=== PATIENT | male | born 1940 | race Caucasian/White ===

== ENCOUNTER 2022-07-06 16:50 | Inpatient (IN) | payer OTHER ==
--- OUTSIDE RECORDS SUMMARY | 2022-07-06 16:54 | XMS REPORT | Continuity of Care Document ---
:1940 Author Organization [facility] t Address [address] [place] [address] Care Team Providers Name Role Phone Sharpless Primary Care Physician Problems Condition Condition Condition Status Onset Resolution Last Treating Co mments Source Name Details Category Date Date Treatment Clinician Date Status Status Disease Active Methodi post total post total 5-17 st knee knee 00:00: Hospita replacemen replacemen 00 l t using t using cement, cement, left left Status Status Disease Active Methodi post total post total 2-13 st bilateral bilateral 00:00: Hosp anand knee knee 00 l replacemen replacemen t t Left knee Left knee Disease Active [facility] pain pain 2-13 st 00:00: Hospita 00 l Acute pain Acute pain Disease Active 2016-08 M [facility]i of left of left 0-05 st knee knee 00:00: Hospita 00 l Osteoarthr Osteoarthr Disease Active 2016-08 M ethodi itis of itis of 0-05 st left knee left knee 00:00: Hosp anand 00 l Status Status Disease Active 2016-08 [facility] post knee post knee 0-05 st replacemen replacemen 00:00: Ho spita t t 00 l Chewing Chewing Disease Active 2015-[address] [facility] tobacco tobacco 1-05 [facility] nicotine nicotine 00:00: Medica l dependence dependence 00 Ce nter Atheroscle Atheroscle Disease Active 2015-[address] rosis of rosis of 0[facility]31 [facility] coronary coronary 00:00: Medica l artery of artery of 00 [facility] [place] heart with heart 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/P CABG x Disease Active 2015-[address] 3 3 0-[facility] Acute Acute Disease Active 2015-[address] [facility] pulmonary pulmonary 0-31 [facility] insufficie insufficie 00:00: Me dical ncy ncy 00 Center following following thoracic thoracic surgery surgery Atelectasi Atelectasi Disease Active 2015-[address] s s 0-31 [facility] Hyperglyce Hyperglyce Disease Active 2015-[address] jhony due to jhony due to 0-31 Teresa kes 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 00 Center mellitus mellitus Chronic Chronic Disease Active 2015-[address] [facility] [address] kidney kidney 0-31 [facility] disease, disease, 00:00: Medica l stage III stage III 00 Cent er (moderate) (moderate) H/O: H/O: Disease Active 2015-[address] [facility] hypertensi hypertensi 0-31 Teresa kes on on 00:00: Medical 00 Center Mixed Mixed Disease Active 2015-[address] [facility] hyperlipid hyperlipid 0-31 Teresa kes emia emia 00:00: Medical 00 Center S/P AVR S/P AVR Disease Active 2015-[address] [facility] [address] 0-31 [facility] 00[facility] Center Nonrheumat Nonrheumat Disease Active 2015-[address] ic aortic ic aortic 0-31 [facility] valve valve 00:00: Medical stenosis stenosis 00 Center Acute Acute Disease Active 2015-[address] [facility] [address] blood loss blood loss 0-31 Teresa kes as cause as cause 00:00: Medica l of of 00 Center postoperat postoperat dg anemia dg anemia Coagulopat Coagulopat Disease Active 2015-[address] hy hy 0-31 [facility] 00:[facility]: [facility] 00 Center Allergies, Adverse Reactions, Alerts This patient has no known allergies or adverse reactions. Social History Social Habit Start Date Stop Date Quantity Comments Source History SDOH [facility] Alcohol Frequency Medical Center History SDOH [facility] Alcohol Std Medical Cente r Drinks History SDOH [facility] Alcohol Binge Medical Radha ter History of Snuff User [facility] tobacco use Hospital Alcohol intake 2018-07-28 2018-07-28 Current [facility] 00:00:00 00:00:00 non-drinker of Hospital alcohol (finding) Tobacco use and 2017-05-20 2017-05-20 User of smokeless Me [facility]odist exposure 00:00:00 00:00:00 tobacco Hospital History [facility] 2016-06-15 2016-06-[address] [facility] Alcohol Comment 00:00:00 00:00:00 Medical C enter Sex [birth year] At [birth year] [facility] 00:0000 00:00:00 Hospital Smoking Status Start Date Stop Date Source Never smoked tobacco [facility] Medications Ordered Filled Start Stop Current Ordering Indication Dosage Frequency Signature Comments Components Source Medication Medication Date Date Medication? Clinician (SIG) Name Name bisacodyl 2016-08 Yes 5mg Q24H Take 5 mg Met [facility] (DULCOLAX) 0-[address] 5 mg EC 12:45: daily as Hospit a tablet 44 needed for l constipati on. glipiZIDE 2016-08 Yes 5mg Q.5D Take 5 mg Met [facility]odi (GLUCOTROL) 0-[address] 10 MG 12:45: (two) Hospita tablet 44 times a l day before meals. hydroCHLORO 2016-08 Yes 25mg QD Take 25 mg Methodi thiazide 0-[address] (HYDRODIURI 12:45: daily. Hosp anand L) 25 MG 44 l tablet lisinopril 2016-08 Yes 40mg QD Take 40 mg M ethodi (PRINIVIL,Z 0-[address] ESTRIL) 40 12:45: daily. Hospi ta mg tablet 44 l aspirin 2016-08 Yes 81mg QD Take 81 mg Meth demian (ECOTRIN) 0-[address] 81 MG 12:45: daily. Hospita enteric 44 l coated tablet metFORMIN Yes [facility]i XR 9-25 st (GLUCOPHAGE 00:00: Hospit a -XR) 500 mg 00 l 24 hr tablet metoprolol Yes 12.5mg Q.5D 12.5 mg 2 [facility] tartrate 9-25 (two) st (LOPRESSOR) 00:00: times a Hos braden 25 mg 00 day. l tablet amLODIPine Yes Methodi (NORVASC) 9- st 10 mg 00:00: Hospita tablet 00 l atorvastati 2017-0 Yes Method i n (LIPITOR) 9-21 st 10 MG 00:00: Hospita tablet 00 l glipiZIDE 2015-08 Yes 5mg Take [address] (GLUCOTROL) 1-07 by mouth 2 Teresa kes 5 MG tablet 15:20: (two) Medic al 26 times Center daily before meals. hydrochloro 2015-08 Yes 25mg QD Take [address] thiazide 1-07 by mouth [facility] (HYDRODIURI 15:20: daily. Medi gabriella L) 25 MG 26 Center tablet lisinopril 2015-08 Yes 40mg QD Take [address] (PRINIVIL,Z 1-07 by mouth Luke s ESTRIL) 40 15:20: daily. Medic al MG tablet 26 Center metFORMIN 2015-08 Yes 500mg Take [address] (GLUCOPHAGE 1-07 mg by [facility] ) 500 MG 15:20: mouth 2 Medica l tablet 26 (two) Center times daily with breakfast and dinner. metoprolol 2015-08 Yes 12.5mg Q.5D Take 12.[address] (LOPRESSOR) 1-07 mg by [facility] 25 MG 15:20: mouth 2 Medical tablet 26 (two) Center times daily. simvastatin 2015-08 Yes 40mg QD Take [address] (ZOCOR) 40 1-07 by mouth [facility] MG tablet 15:20: nightly. Medi gabriella 26 Center aspirin 81 2015-08 Yes 81mg QD Take [address] MG EC 1-07 by mouth [facility] tablet 15:20: daily. Medical 26 Center Procedures This patient has no known procedures. Plan of Care Planned Activity Planned Date Details Comments Source Future Scheduled 2022-06-17 HEPATITIS B VACCINES [facility] Test 20:30:35 (1 of 3 - 3-dose series) [code = HEPATITIS B VACCINES (1 of 3 - 3-dose series)] Future Scheduled 2022-06-17 COVID-19 VACCINE (#1) [facility] Test 20:30:35 [code = COVID-19 VACCINE (#1)] Future Scheduled 2022-06-17 SHINGLES VACCINES (1 [facility] Test 20:30:35 of 2) [code = SHINGLES VACCINES (1 of 2)] Future Scheduled 2022-06-17 65+ [facility]OCOCCAL [facility] Test 20:30:35 VACCINE (1 - PCV) [code = 65+ PNEUMOCOCCAL VACCINE (1 - PCV)] Future Scheduled 2022-06-17 INFLUENZA VACCINE [facility] Test 20:30:35 [code = INFLUENZA VACCINE] Results This patient has no known results.
[2022-07-06 17:14] VITALS: BMI 27.8
[2022-07-06] MEDS ORDERED: GLUCAGON 1 MG/VIAL IM PRN (17:42)
[2022-07-06] MEDS ORDERED: D10W 250 ML BAG IV PRN (17:46)
[2022-07-06] MEDS ORDERED: NACHLORIDE 0.45% 1,000 ML IV SCH (18:00)
[2022-07-06] MEDS: INSULIN -REGULAR HUMAN 50 UNIT/0.5 ML ML SQ SCH (18:33)
[2022-07-06 18:44] LABS: Absolute Lymphocytes (CBC) 0.6 K/uL (0.7-4.9); Hematocrit 44.2 % (39.6-49.0); Lymphocytes % 3.3 % (15.3-44.8); MCV 79.6 fL (80-100); MPV 7.9 fL (7.6-11.3); RBC Red Blood Cell Count 5.55 M/uL (4.33-5.43)
[2022-07-06 18:45] LABS: Protime INR 1.49
[2022-07-06] MEDS ORDERED: ONDANSETRON 4 MG (ODT) TAB PO PRN (19:00)
[2022-07-06] MEDS ORDERED: LOPERAMIDE HCL 2 MG CAPSULE PO PRN (19:00)
[2022-07-06] MEDS ORDERED: ONDANSETRON 4 MG/2 ML VIAL IV PRN (19:00)
[2022-07-06] MEDS ORDERED: DIPHENHYDRAMINE 25 MG TAB/CAP PO PRN (19:00)
[2022-07-06] MEDS ORDERED: POLYETHYL GLY 3350 17 GM/DOSE PO PRN (19:00)
[2022-07-06] MEDS ORDERED: ACETAMINOPHEN 325 MG TABLET PO PRN (19:00)
[2022-07-06] MEDS ORDERED: TYLENOL 500 MG PO PRN (19:07)
[2022-07-06 19:26] LABS: Albumin 2.8 g/dL (3.4-5.0); Bilirubin Direct 1.1 mg/dL (0-0.2); Bilirubin Total 2.4 mg/dL (0.2-1.0); Magnesium 2.2 mg/dL (1.8-2.4); Phosphorus 2.8 mg/dL (2.5-4.9); Potassium 3.4 mmol/L (3.5-5.1); Thyroid Stimulating Hormone 0.257 uIU/mL (0.360-3.740)
[2022-07-06] MEDS ORDERED: PNEUMOCOCCAL VACCINE 0.5 ML IMVAC ONE (20:00)
[2022-07-06] MEDS ORDERED: INFLUENZA VACCINE (for 6+ mo) 0.5 ML DOSE IMVAC ONE (20:00)
[2022-07-06] MEDS ORDERED: ACETAMINOPHEN 500 MG TAB PO PRN (20:06)
[2022-07-06] MEDS: METOPROLOL TAR 25 MG TAB PO SCH (21:00)
[2022-07-06] MEDS: ATORVASTATIN 40 MG TAB PO SCH (21:00)
[2022-07-06] MEDS: NACHLORIDE 0.45% 1,000 ML IV SCH (21:00)
[2022-07-06 21:52] LABS: Specific Gravity 1.027 (1.005-1.030); Urine Bacteria <20 /HPF (<20); Urine Bilirubin 1+ (Negative); Urine Blood 1+ (Negative); Urine Clarity Extremely Turbid (Clear); Urine Color Dark-Orange (Yellow); Urine Glucose TRACE (Negative); Urine Mucus Slight /HPF (None Seen); Urine Protein 3+ (Negative); Urine Urobilinogen 2+ (Normal); Urine pH 5.5 (5.0-7.0)
--- NOTE | 2022-07-06 22:42 | RAD REPORT ---
EXAM DESCRIPTION: CT - Abdomen Pelvis Wo Contrast - 07/06/2022 10:31 pm CLINICAL HISTORY: Abdominal pain. RUQ ABD PAIN COMPARISON: No comparisons TECHNIQUE: CT imaging of the abdomen and pelvis was performed without contrast. Solid organ, bowel a nd vascular assessment is limited due to lack of IV and oral contrast. All CT scans are performed using dose optimization technique as appropriate and may include automated exposure control or mA/KV adjustment according to patient size. FINDINGS: Respiratory artifact limits assessment of the lung bases.Small hiatal hernia. The liver, spleen, pancreas, adrenal glands and right kidney are within normal limits for a limited n on-contrast examination. Punctate left nephrolithiasis without hydronephrosis. The gallbladder is sig nificantly distended, appears to contain multiple stones demonstrates surrounding inflammation. Acute cholecystitis is likely present. Mild secondary thickening of hepatic flexure of the colon noted. No bowel obstruction, free air, free fluid or abscess. Sigmoid diverticulosis coli without diverticul itis. Nonvisualized appendix. Moderate lumbosacral degenerative changes. IMPRESSION: The findings are compatible with acute cholecystitis. Gallbladder ultrasound would be re commended for confirmation if clinically needed. A limited non-contrast examination was performed as detailed. The findings were discussed with 4th floor nurse Frandy on 07/06/22 at 11:38 p.m. by telephone.
--- NOTE | 2022-07-06 22:42 | RAD REPORT ---
EXAM DESCRIPTION: RAD - Chest Pa And Lat (2 Views) - 07/06/2022 10:32 pm CLINICAL HISTORY: NEW ADMIT Chest pain. COMPARISON: No comparisons FINDINGS: Mild linear atelectasis is present in the right lung base with elevated right hemidiaphrag m. The lungs are otherwise grossly clear. The heart is mildly enlarged in size. Sternotomy wires are present.
[2022-07-06] MEDS: METOPROLOL TARTRATE 25 MG PO SCH (23:26)
[2022-07-06] MEDS: AMLODIPINE BESYLATE 10 MG PO SCH (23:29)
[2022-07-06] MEDS: ATORVASTATIN 40 MG PO SCH (23:29)
[2022-07-07] MEDS: CEFOXITIN 1 GM in NA CHLORIDE 0.9% 50 ML IVPB SCH ×2 (01:27→08:01)
[2022-07-07] MEDS: METRONIDAZOLE 500mg IVPB 500 MG/100 ML BAG IV SCH ×2 (02:02→08:02)
[2022-07-07 04:05] LABS: Absolute Lymphocytes (CBC) 0.7 K/uL (0.7-4.9); Hematocrit 42.7 % (39.6-49.0); Lymphocytes % 3.8 % (15.3-44.8); MCV 80.2 fL (80-100); MPV 8.5 fL (7.6-11.3); RBC Red Blood Cell Count 5.33 M/uL (4.33-5.43)
[2022-07-07 04:26] LABS: Magnesium 2.3 mg/dL (1.8-2.4); Potassium 3.2 mmol/L (3.5-5.1)
[2022-07-07] MEDS: INSULIN -REGULAR HUMAN 50 UNIT/0.5 ML ML SQ SCH ×4 (07:30→20:48)
[2022-07-07] MEDS: METFORMIN 500 MG PO SCH ×2 (07:35→17:00)
[2022-07-07] MEDS: ASPIRIN EC 81 MG TAB PO SCH (07:36)
[2022-07-07] MEDS: ASPIRIN 81 MG PO SCH (08:00)
[2022-07-07] MEDS: METOPROLOL TAR 25 MG TAB PO SCH ×2 (08:00→21:00)
[2022-07-07] MEDS: LISINOPRIL 20 MG PO SCH (08:00)
[2022-07-07] MEDS: [UNRECOGNIZED DRUG - OTHER] PO SCH (08:00)
[2022-07-07] MEDS: METOPROLOL TARTRATE 25 MG PO SCH ×2 (08:00→20:47)
[2022-07-07] MEDS ORDERED: POTASSIUM CL 40 MEQ in NA CHLORIDE 0.9% 500 ML IV SCH (08:00)
[2022-07-07] MEDS: CHOLECALCIFEROL PO SCH (08:00)
[2022-07-07] MEDS: NACHLORIDE 0.45% 1,000 ML IV SCH ×3 (08:02→17:18)
--- NOTE | 2022-07-07 11:25 | RAD REPORT ---
EXAM DESCRIPTION: [id number]/22/2022 10:25 am CLINICAL HISTORY: Abdominal pain COMPARISON: July 06, 2022 cat scan TECHNIQUE: Magnetic resonance cholangiogram was performed.3D MIP reconstruction performed. Additiona l axial and coronal magnetic resonance imaging of abdomen obtained. 16 cc MultiHance administered int ravenously. Dynamic sequences obtained FINDINGS: Some images are degraded by motion artifact. Several small gallstones visualized. Gallbladder wall is thickened with stranding and ill-defined fluid within the adjacent fat. The biliary tree is normal caliber without a filling defect. Pancreatic duct is normal caliber IMPRESSION: Cholelithiasis with cholecystitis
[2022-07-07] MEDS ORDERED: NA CHLORIDE 0.9% 1,000 ML ONE (11:57)
[2022-07-07] MEDS ORDERED: PIPER TAZO 2.25 GM in NA CHLORIDE 0.9% 50 ML IV ONE (12:20)
--- NOTE | 2022-07-07 12:25 | P.CNS ---
Date of Consult: 07/07/22 Reason for consult: Abdominal pain History of present illness: 81-year-old gentleman comes into the hospital with 3-day history of right upper quadrant abdominal painpostprandial in nature. Pain is associated with nausea and vomiting. Patient has never had pain this bad in the past before. Patient denies any sore throat, runny nose, cough, headaches or dizziness. Patient does have low-grade fever. Review of systems: Otherwise unremarkable Past medical history: Coronary artery disease hypertension and diabetes Past surgical history: CABG, multiple knee replacements Allergies: None Social history: Patient does not smoke or drink alcohol but he does chew tobacco. Family history: Noncontributory Vital signs: Stable, temperature is 99.9 Physical exam: Awake, alert and oriented x3 Head and neck exam: Cranial nerves II through XII grossly within normal limits, no icterus noted, no JVD, throat clear, neck supple and no neck masses Chest: Clear Heart: S1-S2 Abdomen: Soft, nondistended, positive bowel sounds, right upper quadrant tenderness with rebound Extremity: Neurovascular intact, nontender Neuro: Nonfocal Diagnostic data: 18,[address] of the abdomen pelvis consistent with acute cholecystitis and cholelithiasis. MRCP shows no evidence of stone in the common bile duct with normal dimensions. LFTs are slightly elevated. Assessment: Acute cholecystitis and cholelithiasis Plan/recommendation: N.p.o., IV fluids and IV antibiotics. To the OR for laparoscopic cholecystectomy possible open. Patient understands risk benefits and alternatives and agrees to procedure. CC: Dr. Monroy's office
[2022-07-07] MEDS ORDERED: ROCURONIUM 50 MG/5 ML VIAL IV ONE (12:27)
[2022-07-07] MEDS ORDERED: propofoL 200 MG/20 ML VIAL IV ONE (12:27)
[2022-07-07] MEDS ORDERED: FENTANYL CITR 100 MCG/2 ML ONE (12:27)
[2022-07-07] MEDS ORDERED: ONDANSETRON 4 MG/2 ML VIAL ONE (12:27)
[2022-07-07] MEDS ORDERED: LIDOCAINE 2% MPF 5 ML VIAL ONE (12:27)
--- NOTE | 2022-07-07 14:08 | P.PN ---
Subjective Date of Service: 07/07/22 Chief Complaint: MILD PAIN. NO FEVER, NO NAUSEA. Subjective: Improving MR. HARRINGTON IS ALREADY FEELING BETTER. I CALLED DR. JOY TO GET HIM FOR SURGERY. HIS MRCP IS OKAY. HIS MEDICAL RISK IS MILD TO MODERATE FOR HIS AGE. THIS IS URGENT SURGERY AND HE HAS NO ACUTE CORONARY ISSUES. FAMILY IS AWARE. Review of Systems 10-point ROS is otherwise unremarkable General: Weakness, Malaise Gastrointestinal: Nausea, Abdominal Pain Physical Examination - Vital Signs Temperature: 98.4 F Blood Pressure: 113/62 Pulse: 71 Respirations: 20 Pulse Ox (%): 91 - Physical Exam General: Oriented x3, Moderate distress HEENT: Atraumatic, PERRLA, EOMI Neck: Supple, JVD not distended Respiratory: Clear to auscultation bilaterally, Normal air movement Cardiovascular: Regular rate/rhythm, Normal S1 S2 Gastrointestinal: Tenderness (DIF ABDOMEN PAIN, RUQ MODERATE.) Musculoskeletal: No tenderness Integumentary: No rashes Neurological: Normal speech, Normal tone, Normal affect Lymphatics: No axilla or inguinal lymphadenopathy - Studies Laboratory Data (last 24 hrs) 07/07/22 03:08: Sodium 131 L, Potassium 3.2 L, BUN 46 H, Creatinine 2.22 H, Glucose 135 H, Magnesium 2.3 07/07/22 03:08: WBC 18.20 H, Hgb 14.0, Hct 42.7, Plt Count 117 L 07/06/22 18:18: PT 16.4 H, INR 1.49 07/06/22 18:18: Sodium 132 L, Potassium 3.4 L, BUN 38 H, Creatinine 1.99 H, Glucose 169 H, Phosphorus 2.8, Magnesium 2.2, Total Bilirubin 2.4 H, AST 60 H, ALT 155 H, Alkaline Phosphatase 140 H 07/06/22 18:18: APTT 35.2 07/06/22 18:18: WBC 18.30 H, Hgb 14.8, Hct 44.2, Plt Count 130 L Microbiology Data (last 24 hrs): 07/06/22 18:29 Blood - Blood Anaerobic Blood Culture - Final Medications List Reviewed: Yes Assessment And Plan - Current Problems (Diagnosis) (1) Acute cholecystitis Current Visit: Yes Status: Acute Plan: SURGERY TODAY. SHOULD DO OKAY MAY BE ABLE TO GO HOME IN A DAY OR TWO. (2) Sepsis with acute renal failure Current Visit: Yes Status: Acute Plan: IV FLUIDS. NEPHROLOGY CONSULT. STABLE FOR NOW.
[2022-07-07] MEDS ORDERED: GLYCOPYRROLATE 0.2 MG/ML SYR ONE (14:09)
[2022-07-07] MEDS ORDERED: NEOSTIGMINE 1 MG/ML -5 ML ONE (14:09)
--- NOTE | 2022-07-07 14:26 | P.OP ---
Date of Service: 07/07/22 Preop diagnosis: Acute cholecystitis and cholelithiasis Postop diagnosis: Acute gangrenous and ischemic cholecystitis and cholelithiasis Procedure performed: Diagnostic laparoscopy, open cholecystectomy Surgeon: Fady Granados MD [employer]phalt Plant Worker: Helga MARIANO, GARCÍA Helms Estimated blood loss: Minimal Specimen: Gallbladder Findings: As above Anesthesia: General Complications: None Drains: Barry-Suarez #10 flat Fluids and blood products: Non applicable Disposition: Recovery room Operative note: Patient brought to the OR and placed in supine position. General anesthesia begun. Patient prepped and draped in the usual sterile fashion. Marcaine 0.5% infiltrated locally. 15 blade used to make a 1 cm supraumbilical midline incision. Subcutaneous tissue divided. Fascia identified and divided. There was mesh underneath the fascia. That was divided as well. #1 Vicryl stay suture placed. Peritoneal cavity entered with sharp and blunt dissection. 12 mm trocar placed into the peritoneal cavity under direct vision. Pneumoperitoneum established. 5 mm trocar placed in the epigastric region just to the right of midline under direct vision. Laparoscopy revealed extensive adhesions in the right upper quadrant. There was colon that was draped onto the omentum as well. Gallbladder could not be visualized well. There were ischemic and gangrenous changes that were visible. At this point made a decision to convert to an open procedure. A 12 cm right subcostal incision was made. Subcutaneous tissue divided. Rectus abdominis fascia identified and divided. Rectus abdominis muscle divided. Posterior sheath identified and divided. Peritoneal cavity entered. Liver mobilized inferiorly. Gallbladder finally identified with sharp and blunt dissection. Omental adhesions taken down with sharp and blunt dissection bleeding controlled with cautery. Gallbladder was distended with multiple areas of ischemia. Early signs of gangrene was present as well. Gallbladder was dissected free from the liver bed with retrograde dissection. Bleeding controlled with cautery. Cystic duct cystic artery were identified and inflammatory tissue at the end of the infundibulum. They were ligated with 2-0 silk sutures x2 gallbladder was removed and sent to pathology. Right upper quadrant was irrigated. No evidence of bleeding or bile leakage appreciated. #10 flat Barry-Suarez drain placed into the gallbladder fossa. There was minimal oozing noted from the liver bed. Surgicel was applied with pressure and there was no further bleeding noted. All counts were correct. Posterior sheath was closed with #1 Vicryl. Subcu wound irrigated bleeding controlled with cautery and then #2 nylon was used to close the fascia. The Vicryl suture at the umbilicus was tacked to each other to reapproximate the fascial defect. Subcutaneous wounds irrigated bleeding controlled cautery. Staple used to close skin. Sterile dressing applied and patient awakened. Patient taken to recovery room in good general condition. CC: Dr. Monroy's office
[2022-07-07] MEDS ORDERED: HYDROMORPHONE HCL 1 MG/ML INJ IV PRN (14:47)
[2022-07-07] MEDS: HYDROMORPHONE HCL 1 MG/ML INJ ONE ×2 (14:54→15:05)
[2022-07-07] MEDS ORDERED: NACHLORIDE 0.45% 1,000 ML IV ONE (15:10)
[2022-07-07] MEDS ORDERED: NALOXONE 0.4 MG/ML VIAL ONE (15:35)
[2022-07-07] MEDS: PIPER TAZO 3.375 GM in NA CHLORIDE 0.9% 100 ML IV SCH ×2 (17:22→23:36)
[2022-07-07] MEDS ORDERED: PNEUMOCOCCAL VACCINE 0.5 ML IMVAC ONE (20:00)
[2022-07-07] MEDS ORDERED: INFLUENZA VACCINE (for 6+ mo) 0.5 ML DOSE IMVAC ONE (20:00)
[2022-07-07] MEDS: ATORVASTATIN 40 MG PO SCH (20:46)
[2022-07-07] MEDS: AMLODIPINE BESYLATE 10 MG PO SCH (20:48)
[2022-07-07] MEDS: ATORVASTATIN 40 MG TAB PO SCH (21:00)
[2022-07-08 00:49] LABS: UR SODIUM < 15 mmol/L (27-287)
[2022-07-08] MEDS: NACHLORIDE 0.45% 1,000 ML IV SCH ×2 (01:00→09:00)
[2022-07-08 01:10] LABS: UR MICROALBUMIN 16.6 mg/dL (< 1.9)
[2022-07-08] MEDS: HYDROCODONE/APAP 7.5/325 MG TAB PO PRN ×2 (03:52→19:29)
[2022-07-08 04:31] LABS: Absolute Lymphocytes (CBC) 0.8 K/uL (0.7-4.9); Hematocrit 40.1 % (39.6-49.0); Lymphocytes % 5.1 % (15.3-44.8); MCV 80.4 fL (80-100); RBC Red Blood Cell Count 4.99 M/uL (4.33-5.43)
[2022-07-08 05:42] LABS: Magnesium 2.4 mg/dL (1.8-2.4); Phosphorus 3.8 mg/dL (2.5-4.9); Potassium 3.5 mmol/L (3.5-5.1)
[2022-07-08] MEDS: PIPER TAZO 3.375 GM in NA CHLORIDE 0.9% 100 ML IV SCH ×3 (06:25→22:28)
[2022-07-08 06:46] LABS: Blood Morphology Comment NOT SEEN (NOT SEEN); Platelet Estimate ADEQ
[2022-07-08] MEDS: INSULIN -REGULAR HUMAN 50 UNIT/0.5 ML ML SQ SCH ×4 (07:30→21:21)
[2022-07-08] MEDS: ASPIRIN 81 MG PO SCH (08:19)
[2022-07-08] MEDS: METFORMIN 500 MG PO SCH ×2 (08:20→16:15)
[2022-07-08] MEDS: ASPIRIN EC 81 MG TAB PO SCH (08:21)
[2022-07-08] MEDS: CHOLECALCIFEROL PO SCH (08:21)
[2022-07-08] MEDS: LISINOPRIL 20 MG PO SCH (08:22)
[2022-07-08] MEDS: [UNRECOGNIZED DRUG - OTHER] PO SCH (08:22)
[2022-07-08] MEDS: METOPROLOL TARTRATE 25 MG PO SCH ×2 (08:23→21:17)
[2022-07-08] MEDS: METOPROLOL TAR 25 MG TAB PO SCH ×2 (08:25→21:00)
--- NOTE | 2022-07-08 09:09 | P.PN ---
Date of Service: 07/08/22 Subjective: Patient is awake and alert. Patient is tolerating clear liquids. Patient only has pain when he is coughing. Objective: Vital signs stable, afebrile. White count is 16,000. ALEJANDRO drain put out 35 cc over the last shift. Abdomen: Soft, nondistended, positive bowel sounds with minimal incisional tenderness and dressing is clean dry and intact Assessment: Status post diagnostic laparoscopy, open cholecystectomy Plan: We will advance diet and decrease IV fluids. Encourage ambulation and if needed physical therapy will be consulted. Continue IV antibiotics. Incentive spirometry as ordered. Discharge in 24 to 48 hours. CC:
--- NOTE | 2022-07-08 12:37 | RAD REPORT ---
EXAM DESCRIPTION: RAD - Chest Single View - 07/08/2022 11:48 am CLINICAL HISTORY: unable to wean off O2. Chest pain. COMPARISON: Chest Pa And Lat (2 Views) dated 07/06/2022; Abdomen Pelvis Wo Contrast dated 07/06/20; Cholangiogram dated 07/07/2022 FINDINGS: Portable technique limits examination quality. Bibasilar lung opacity is noted, greater on the right, likely combination of atelectasis and pleural fluid. Cannot exclude a right base pneumonia or aspiration. The heart is mildly enlarged in size. Adam rnotomy wires present.
--- NOTE | 2022-07-08 14:09 | P.PN ---
Subjective Date of Service: 07/08/22 Chief Complaint: MILD PAIN. NO FEVER, NO NAUSEA. Subjective: Improving MR. HARRINGTON IS ALREADY FEELING BETTER. I CALLED DR. JOY TO GET HIM FOR SURGERY. HIS MRCP IS OKAY. HIS MEDICAL RISK IS MILD TO MODERATE FOR HIS AGE. THIS IS URGENT SURGERY AND HE HAS NO ACUTE CORONARY ISSUES. FAMILY IS AWARE. HE IS FEELING GREAT HE CAN GO HOME IN AM. NOT SURE IF SHE CAN TAKE CARE OF HIM. HE HAS DRAIN FROM SURGERY. Physical Examination - Vital Signs Temperature: 97.6 F Blood Pressure: 126/65 Pulse: 61 Respirations: 17 Pulse Ox (%): 91 - Physical Exam General: Oriented x3, Mild distress HEENT: Atraumatic, PERRLA, EOMI Neck: Supple, JVD not distended Respiratory: Clear to auscultation bilaterally, Normal air movement, Other (ABDOMEN PAIN WHEN COUGHS.) Cardiovascular: Regular rate/rhythm, Normal S1 S2 Gastrointestinal: Normal bowel sounds, No tenderness Musculoskeletal: No tenderness Integumentary: No rashes Neurological: Normal speech, Normal tone, Normal affect Lymphatics: No axilla or inguinal lymphadenopathy - Studies Laboratory Data (last 24 hrs) 07/08/22 03:42: WBC 16.10 H, Hgb 13.1 L, Hct 40.1, Plt Count 122 L 07/08/22 03:42: Sodium 133 L, Potassium 3.5, BUN 48 H, Creatinine 1.55 H, Glucose 138 H, Phosphorus 3.8, Magnesium 2.4 Microbiology Data (last 24 hrs): 07/06/22 18:29 Blood - Blood Anaerobic Blood Culture - Final Medications List Reviewed: Yes Assessment And Plan - Current Problems (Diagnosis) (1) Acute cholecystitis Current Visit: Yes Status: Acute Plan: SURGERY TODAY. SHOULD DO OKAY MAY BE ABLE TO GO HOME IN A DAY OR TWO. SP SURGERY DAY 1. DOING GREAT CONT ABX. (2) Sepsis with acute renal failure Current Visit: Yes Status: Acute Plan: IV FLUIDS. NEPHROLOGY CONSULT. STABLE FOR NOW. EVEN WITH GENTLE HYDRATION HE IS ALREADY SHORT OF BREATH AND HYPOXIC. HE WOULD NOT HAVE TOLERATED HEAVY DOSE OF FLUIDS LIKE SEPSIS PROTOCOL ASKS FOR. CREA TIS DOWN TO 1.5. WBC IS DOWN. CONT ABX.
--- NOTE | 2022-07-08 14:47 | P.CNS ---
Date of Consult: 07/08/22 Reason for Consult: CYNDI Requesting Physician: Blayne Monroy V Chief Complaint: MILD PAIN. NO FEVER, NO NAUSEA. History of Present Illness: 81M w/ PMHx of Htn, HLD, DM2, & vit D deficiency, who p/w abdominal pain found to have sepsis 2/2 acute cholecystitis now s/p open cholecystectomy. He is referred ton Nephrology for renal failure. SCr 1.7 on adm, increased to 2.2, now improved to 1.6. He has abd ALEJANDRO drain w/ minimial drain output. Abd pain is minimal. He denies prior hx of kidney dse. He is starting po intake. No c/o nausea or vomiting. Allergies No Known Allergies Allergy (Verified 06/08/16 09:08) Home Medications: Acetaminophen [Tylenol Extra Strength] 500 mg PO Q6HP PRN 07/06/22 Amlodipine Besylate 10 mg PO BEDTIME 07/06/22 Aspirin [Aspirin EC 81 MG] 81 mg PO DAILY 07/06/22 Atorvastatin Calcium 40 mg PO BEDTIME 07/06/22 Cholecalciferol (Vitamin D3) [Vitamin D3] 2,000 units PO DAILY 07/06/22 Lisinopril [Zestril] 20 mg PO DAILY 07/06/22 Metformin HCl [Glucophage*] 500 mg PO BIDWM 07/06/22 Metoprolol Tartrate 12.5 mg PO BID 07/06/22 hydroCHLOROthiazide [Hydrochlorothiazide*] 12.5 mg PO DAILY 07/06/22 - Past Medical/Surgical History -: diverticulitis -: HTN -: DM -: triple bypass w/ valve replacement - Social History Alcohol use: Yes CD- Drugs: No Caffeine use: Yes Place of Residence: Home Review of Systems General: Unremarkable Eyes: Unremarkable ENT: Unremarkable Respiratory: Unremarkable Cardiovascular: Unremarkable Gastrointestinal: Abdominal Pain Genitourinary: Unremarkable Musculoskeletal: Unremarkable Integumentary: Unremarkable Neurological: Unremarkable Physical Examination Temp Pulse Resp BP Pulse Ox 97.6 F 61 17 126/65 91 07/08/22 14:09 07/08/22 14:09 07/08/22 14:09 07/08/22 14:09 07/08/22 14:09 General: In no apparent distress HEENT: Atraumatic, Normocephalic Neck: Supple, JVD not distended Respiratory: Clear to auscultation bilaterally Cardiovascular: No rubs, No murmurs Gastrointestinal: Soft and benign, No guarding Musculoskeletal: No clubbing Integumentary: No warmth Neurological: Normal speech, Normal tone Urinary: Other (No bladder distention) External genitalia: Deferred Rectal: Deferred Laboratory Data (last 24 hrs) 07/08/22 03:42: WBC 16.10 H, Hgb 13.1 L, Hct 40.1, Plt Count 122 L 07/08/22 03:42: Sodium 133 L, Potassium 3.5, BUN 48 H, Creatinine 1.55 H, Glucose 138 H, Phosphorus 3.8, Magnesium 2.4 Conclusions/Impression: 81M w/ PMHx of Htn, HLD, DM2, & vit D deficiency, who p/w abdominal pain found to have acute cholecystitis now s/p open cholecystectomy. He is referred ton Nephrology for renal failure. SCr 1.7 on adm, increased to 2.2, now improved to 1.6. Baseline SCr 1.1 in May 2016. He has abd ALEJANDRO drain w/ minimial drain output. Abd pain is minimal. He denies prior hx of kidney dse. He is starting po intake. No c/o nausea or vomiting. # CYNDI 2/2 prerenal state +/- ATN/sepsis vs CYNDI on CKD3 Baseline SCr 1.1 in May 2016. No recent baseline SCr documented. Urinalysis w/ proteinuria but no hematuria or pyuria Urine chem showed secondary hyperaldosteronism. Recheck urine chem as outpt PO fluid intake as able. ADAT. Cont IV fluid until tomorrow AM. Monitor renal panel # Sepsis 2/2 acute cholecystitis Resolving S/p open dora on 07/06 On abx, IV fluid # Htn BP stable, monitor # HLD Per primary team # DM2 Per primary team
[2022-07-08] MEDS: NA CHLORIDE 0.9% 1,000 ML IV SCH (16:15)
[2022-07-08] MEDS: LEVALBUTEROL 0.63 MG/3 ML NEB NEB SCH (19:45)
[2022-07-08] MEDS: ATORVASTATIN 40 MG TAB PO SCH (21:00)
[2022-07-08] MEDS: ATORVASTATIN 40 MG PO SCH (21:19)
[2022-07-08] MEDS: AMLODIPINE BESYLATE 10 MG PO SCH (21:20)
[2022-07-09] MEDS: LEVALBUTEROL 0.63 MG/3 ML NEB NEB SCH ×4 (01:10→19:45)
[2022-07-09] MEDS: PIPER TAZO 3.375 GM in NA CHLORIDE 0.9% 100 ML IV SCH ×3 (06:37→23:23)
[2022-07-09] MEDS: INSULIN -REGULAR HUMAN 50 UNIT/0.5 ML ML SQ SCH ×4 (07:30→21:00)
[2022-07-09] MEDS: METOPROLOL TAR 25 MG TAB PO SCH ×2 (09:00→21:00)
[2022-07-09] MEDS: ASPIRIN 81 MG PO SCH (09:00)
[2022-07-09] MEDS: METFORMIN 500 MG PO SCH ×2 (09:13→16:38)
[2022-07-09] MEDS: ASPIRIN EC 81 MG TAB PO SCH (09:13)
[2022-07-09] MEDS: [UNRECOGNIZED DRUG - OTHER] PO SCH (09:14)
[2022-07-09] MEDS: CHOLECALCIFEROL PO SCH (09:14)
[2022-07-09] MEDS: LISINOPRIL 20 MG PO SCH (09:16)
[2022-07-09] MEDS: METOPROLOL TARTRATE 25 MG PO SCH ×2 (09:17→20:29)
--- NOTE | 2022-07-09 10:13 | P.PN ---
Subjective Date of Service: 07/09/22 Chief Complaint: MILD PAIN. NO FEVER, NO NAUSEA. Subjective: Improving MR. HARRINGTON IS ALREADY FEELING BETTER. I CALLED DR. JOY TO GET HIM FOR SURGERY. HIS MRCP IS OKAY. HIS MEDICAL RISK IS MILD TO MODERATE FOR HIS AGE. THIS IS URGENT SURGERY AND HE HAS NO ACUTE CORONARY ISSUES. FAMILY IS AWARE. HE IS FEELING GREAT HE CAN GO HOME IN AM. NOT SURE IF SHE CAN TAKE CARE OF HIM. HE HAS DRAIN FROM SURGERY. HE IS FEELING GREAT. DENIES ANY PAIN NO BM OR GAS PASSAGE YET. Review of Systems 10-point ROS is otherwise unremarkable Physical Examination - Vital Signs Temperature: 98.5 F Blood Pressure: 135/62 Pulse: 62 Respirations: 16 Pulse Ox (%): 90 - Physical Exam General: Oriented x3, Mild distress HEENT: Atraumatic, PERRLA, EOMI Neck: Supple, JVD not distended Respiratory: Clear to auscultation bilaterally, Normal air movement Cardiovascular: Regular rate/rhythm, Normal S1 S2 Gastrointestinal: Normal bowel sounds, No tenderness Musculoskeletal: No tenderness Integumentary: No rashes Neurological: Normal speech, Normal tone, Normal affect Lymphatics: No axilla or inguinal lymphadenopathy - Studies Medications List Reviewed: Yes Assessment And Plan - Current Problems (Diagnosis) (1) Acute cholecystitis Current Visit: Yes Status: Acute Plan: SURGERY TODAY. SHOULD DO OKAY MAY BE ABLE TO GO HOME IN A DAY OR TWO. SP SURGERY DAY 1. DOING GREAT CONT ABX. IV ABX, ZOSYN DC IN AM POSSIBLE. ALL PHARMACIES ARE CLOSED TODAY. HE NEEDS ABX FOR HOME. AT THE SAME TIME HE HAS NO PASSAGE OF GAS OR BM YET. (2) Sepsis with acute renal failure Current Visit: Yes Status: Acute Plan: IV FLUIDS. NEPHROLOGY CONSULT. STABLE FOR NOW. EVEN WITH GENTLE HYDRATION HE IS ALREADY SHORT OF BREATH AND HYPOXIC. HE WOULD NOT HAVE TOLERATED HEAVY DOSE OF FLUIDS LIKE SEPSIS PROTOCOL ASKS FOR. CREA TIS DOWN TO 1.5. WBC IS DOWN. CONT ABX. CREAT IS DOWN. RECHECK DAILY. GENTLE IV HYDRATION. (3) Hypoxia Current Visit: Yes Status: Chronic Plan: I SEE NO SIGNS OF CHF. HE HAS NEVER SMOKED HE HAS HAD ASBESTOSIS EXPOSURE AND SCARRING OF LUNGS. HE ALSO HAD SEVERE PULMONARY INFECTION IN CHILDHOOD. THESE FACTORS MAY BE CAUSE OF HYPOXIA. CONTINUE IS
[2022-07-09 11:00] LABS: Absolute Lymphocytes (CBC) 0.6 K/uL (0.7-4.9); Hematocrit 38.9 % (39.6-49.0); Lymphocytes % 5.8 % (15.3-44.8); MCV 79.9 fL (80-100); RBC Red Blood Cell Count 4.87 M/uL (4.33-5.43)
--- NOTE | 2022-07-09 11:04 | P.PN ---
Date of Service: 07/09/22 Subjective: Patient is awake and alert. Patient is tolerating regular diet. Objective: Vital signs stable, afebrile. White count is 11,000. ALEJANDRO drain is 30 cc. Abdomen: Soft, nondistended, positive bowel sounds with minimal incisional tenderness and dressing is clean dry and intact Assessment: Status post diagnostic laparoscopy, open cholecystectomy Plan: Continue IV antibiotics for 1 more day. Encourage incentive spirometry and ambulation. Likely discharge in a.m. CC:
[2022-07-09 11:51] LABS: Potassium 3.4 mmol/L (3.5-5.1)
[2022-07-09 11:52] LABS: Bilirubin Direct 0.5 mg/dL (0-0.2); Protein, Total 6.3 g/dL (6.4-8.2)
--- NOTE | 2022-07-09 13:12 | P.PN ---
Subjective Date of Service: 07/09/22 Chief Complaint: MILD PAIN. NO FEVER, NO NAUSEA. Subjective: Other (Able to eat more today. No c/o nausea or vomiting.) Physical Examination - Vital Signs Temperature: 98.1 F Blood Pressure: 137/65 Pulse: 63 Respirations: 16 Pulse Ox (%): 91 - Physical Exam General: In no apparent distress HEENT: Atraumatic, Normocephalic Neck: Supple Respiratory: Other (Symmetric chest expansion) Cardiovascular: No rubs, No murmurs Gastrointestinal: Soft and benign, No guarding Musculoskeletal: No clubbing Integumentary: No warmth Neurological: Normal speech, Normal tone Urinary: Other (No bladder distention) External genitalia: Deferred Rectal: Deferred - Studies Laboratory Data (last 24 hrs) 07/09/22 10:39: Sodium 134 L, Potassium 3.4 L, BUN 36 H, Creatinine 1.22, Glucose 193 H, Total Bilirubin 1.0, AST 36, ALT 72, Alkaline Phosphatase 133 H 07/09/22 10:39: WBC 11.00 H, Hgb 13.1 L, Hct 38.9 L, Plt Count 136 L Medications List Reviewed: Yes Assessment And Plan - Plan # CYNDI 2/2 prerenal state +/- ATN/sepsis vs CYNDI on CKD3 CYNDI improving, SCr improved to 1.2 today Baseline SCr 1.1 in May 2016. No recent baseline SCr documented. Urinalysis w/ proteinuria but no hematuria or pyuria Urine chem showed secondary hyperaldosteronism. Recheck urine chem as outpt PO fluid intake as able. ADAT. Cont IV fluid until tomorrow AM. Monitor renal panel # Sepsis 2/2 acute cholecystitis Resolving S/p open dora on 07/06 On abx, IV fluid ADAT # Htn BP stable, monitor # HLD Per primary team # [id number] Per primary team
[2022-07-09] MEDS ORDERED: POTASSIUM CL SA 10 MEQ TAB PO ONE (14:00)
[2022-07-09] MEDS: NA CHLORIDE 0.9% 1,000 ML IV SCH (16:37)
[2022-07-09] MEDS ORDERED: ENOXAPARIN 40 MG/0.4 ML SQ SCH (17:00)
[2022-07-09] MEDS: HYDROCODONE/APAP 7.5/325 MG TAB PO PRN (20:29)
[2022-07-09] MEDS: AMLODIPINE BESYLATE 10 MG PO SCH (20:29)
[2022-07-09] MEDS: ATORVASTATIN 40 MG PO SCH (20:29)
[2022-07-09] MEDS: ATORVASTATIN 40 MG TAB PO SCH (21:00)
[2022-07-10] MEDS: LEVALBUTEROL 0.63 MG/3 ML NEB NEB SCH ×2 (01:50→07:30)
[2022-07-10] MEDS: NA CHLORIDE 0.9% 1,000 ML IV SCH (04:00)
[2022-07-10] MEDS: PIPER TAZO 3.375 GM in NA CHLORIDE 0.9% 100 ML IV SCH (06:11)
[2022-07-10 06:23] LABS: Absolute Lymphocytes (CBC) 1.1 K/uL (0.7-4.9); Hematocrit 38.1 % (39.6-49.0); Lymphocytes % 11.2 % (15.3-44.8); MCV 80.4 fL (80-100); MPV 8.3 fL (7.6-11.3); RBC Red Blood Cell Count 4.75 M/uL (4.33-5.43)
[2022-07-10 06:37] LABS: Potassium 3.6 mmol/L (3.5-5.1)
[2022-07-10] MEDS: INSULIN -REGULAR HUMAN 50 UNIT/0.5 ML ML SQ SCH (07:30)
[2022-07-10 08:04] VITALS: BP 139/68; TEMP 98.3
[2022-07-10] MEDS: METOPROLOL TAR 25 MG TAB PO SCH (09:00)
[2022-07-10] MEDS: ASPIRIN EC 81 MG TAB PO SCH (09:00)
[2022-07-10] MEDS: ASPIRIN 81 MG PO SCH (09:23)
[2022-07-10] MEDS: METFORMIN 500 MG PO SCH (09:23)
[2022-07-10] MEDS: CHOLECALCIFEROL PO SCH (09:24)
[2022-07-10] MEDS: [UNRECOGNIZED DRUG - OTHER] PO SCH (09:25)
[2022-07-10] MEDS: METOPROLOL TARTRATE 25 MG PO SCH (09:25)
[2022-07-10] MEDS: LISINOPRIL 20 MG PO SCH (09:25)
--- NOTE | 2022-07-10 09:36 | P.PN ---
Date of Service: 07/10/22 Subjective: Patient is awake and alert. Patient is tolerating regular diet. Objective: Vital signs stable, afebrile. White count is normal. ALEJANDRO drain is 20 cc. Abdomen: Soft, nondistended, positive bowel sounds with minimal incisional tenderness and dressing is clean dry and intact Assessment: Status post diagnostic laparoscopy, open cholecystectomy Plan: Patient cleared from surgery point of view for discharge. Antibiotics per Dr. Monroy. Discharge instructions given. CC:
[2022-07-10 11:27] VITALS: O2SAT 92
--- NOTE | 2022-07-10 14:15 | P.DS ---
Admission Date: 07/07/22 Discharge Date: 07/10/22 Disposition: ROUTINE DISCHARGE Discharge Condition: FAIR Reason for Admission: MILD PAIN. NO FEVER, NO NAUSEA. - Problems (1) Acute cholecystitis Status: Acute (2) Sepsis with acute renal failure Status: Acute (3) Hypoxia Status: Chronic Hospital Course: [facility] HAD NAUSEA AND WEAKNESS. HE HAD RUQ TENDERNESS AND WBC ELEVATION. HE WAS FOUND TO HAVE ACUTE CHOLECYSTITIS WITH GANGRENE. HE DID WELL WITH CHOLECYSTECTOMY NEEDED ABX IV AND HE IS DOING GREAT NOW TO GO HOME WITH ORAL ANTBIOTICS. HIS HYPOXIA IS FROM ATELECTASIS FROM PAIN OF RUQ. HE DID NOT HAVE ANY SIGNS OF SEPSIS BUT BEING HIGH RISK I GAVE HIM IV FLUIDS WITH ANTIBIOTICS STAT ON ADMISSION. Vital Signs/Physical Exam: Temp Pulse Resp BP Pulse Ox 98.3 F 58 17 139/68 92 07/10/22 08:00 07/10/22 08:00 07/10/22 08:00 07/10/22 08:00 07/10/22 08:00 Laboratory Data at Discharge: WBC 9.50 K/uL (4.3-10.9) 07/10/22 05:37 Hgb 12.7 g/dL (13.6-17.9) L 07/10/22 05:37 Hct 38.1 % (39.6-49.0) L 07/10/22 05:37 Plt Count 159 K/uL (152-406) 07/10/22 05:37 PT 16.4 SECONDS (9.5-12.5) H 07/06/22 18:18 INR 1.49 07/06/22 18:18 APTT 35.2 SECONDS (24.3-36.9) 07/06/22 18:18 Sodium 138 mmol/L (136-145) 07/10/22 05:37 Potassium 3.6 mmol/L (3.5-5.1) 07/10/22 05:37 BUN 29 mg/dL (7-18) H 07/10/22 05:37 Creatinine 1.03 mg/dL (0.55-1.3) 07/10/22 05:37 Glucose 151 mg/dL (74-106) H 07/10/22 05:37 Phosphorus 3.8 mg/dL (2.5-4.9) 07/08/22 03:42 Magnesium 2.4 mg/dL (1.8-2.4) 07/08/22 03:42 Total Bilirubin 1.0 mg/dL (0.2-1.0) 07/09/22 10:39 AST 36 U/L (15-37) 07/09/22 10:39 ALT 72 U/L (12-78) 07/09/22 10:39 Alkaline Phosphatase 133 U/L (45-117) H 07/09/22 10:39 Home Medications: Acetaminophen [Tylenol Extra Strength] 500 mg PO Q6HP PRN 07/06/22 Amlodipine Besylate 10 mg PO BEDTIME 07/06/22 Aspirin [Aspirin EC 81 MG] 81 mg PO DAILY 07/06/22 Atorvastatin Calcium 40 mg PO BEDTIME 07/06/22 Cholecalciferol (Vitamin D3) [Vitamin D3] 2,000 units PO DAILY 07/06/22 Lisinopril [Zestril] 20 mg PO DAILY 07/06/22 Metformin HCl [Glucophage*] 500 mg PO BIDWM 07/06/22 Metoprolol Tartrate 12.5 mg PO BID 07/06/22 Ciprofloxacin HCl [Cipro 500 MG Tablet] 500 mg PO BID #20 tab 07/10/22 metroNIDAZOLE [Flagyl] 500 mg PO Q8H #30 07/10/22 New Medications: Ciprofloxacin HCl [Cipro 500 MG Tablet] 500 mg PO BID #20 tab metroNIDAZOLE [Flagyl] 500 mg PO Q8H #30 Physician Discharge Instructions: Remove outer dressing in a.m. and shower Dry gauze to wound daily Incentive spirometry as ordered Abdominal binder as ordered Antibiotics and pain meds per Dr. Monroy Diet: AHA Activity: No lifting more than 10 lbs Followup: Blayne Monroy MD [ACTIVE - CAN ADMIT] - Fady Granados MD [ACTIVE - CAN ADMIT] - 1-2 Weeks
[2022-07-11 23:24] LABS: Vitamin D 1,25-Dihydroxy Total 34 pg/mL (18-72); Vitamin D,1,25-OH2, D2 <8 pg/mL
== END 2022-07-10 10:57 | disposition home or self-care (01) | DRG 854 ==
LOC: 4TH 16:50 → OBSVTOIN 07-07 17:41
PROVIDERS: ADMIT Internal Medicine; ATTEND Internal Medicine
PROC: 0FT40ZZ Resection of Gallbladder, Open Approach (ICD-10-PCS; principal; 2022-07-07 12:30)
DX: A41.9 Sepsis, unspecified organism (principal); K80.00 Calculus of gallbladder with acute cholecystitis without obstruction; N17.9 Acute kidney failure, unspecified; K82.A1 Gangrene of gallbladder in cholecystitis; I10 Essential (primary) hypertension; E11.9 Type 2 diabetes mellitus without complications; I25.10 Atherosclerotic heart disease of native coronary artery without angina pectoris; E26.9 Hyperaldosteronism, unspecified; K57.30 Diverticulosis of large intestine without perforation or abscess without bleeding; F17.220 Nicotine dependence, chewing tobacco, uncomplicated; R09.02 Hypoxemia; Z95.2 Presence of prosthetic heart valve; Z95.1 Presence of aortocoronary bypass graft; Z79.82 Long term (current) use of aspirin; Z79.84 Long term (current) use of oral hypoglycemic drugs; Z53.31 Laparoscopic surgical procedure converted to open procedure; Z96.659 Presence of unspecified artificial knee joint; Z79.899 Other long term (current) drug therapy
CPT/HCPCS: 0241U; 36415; 71045; 71046; 74176; 74181; 80048; 80076; 81001; 82043; 82570; 82607; 82652; 82947; 83036; 83735; 83935; 84100; 84132; 84300; 84443; 85025; 85610; 85730; 87040; 88304; 94010; 94760; 97116; 97161; 97530; G0378; G0379; J0694; J1170; J1650; J1815; J2001; J2310; J2405; J2543; J2704; J2710; J3010; J3480; J7030; J7040; J7614